=== PATIENT | male | born 1990 | race Caucasian/White ===

== ENCOUNTER 2017-05-16 13:29 | Emergency (ER) | payer MEDICAID ==
[2017-05-16 14:08] LABS: #Basophils 0.1 thou/uL (0.0-0.2); #Eosinphils 0.1 thou/uL (0.0-0.7); #Lymphocytes 2.5 thou/uL (1.20-3.40); #Monocytes 1.2 thou/uL (0.11-0.59); #Neutrophils 11.1 thou/uL (1.40-6.50); %Basophils 0.5 % (0.0-1.0); %Eosinophils 0.4 % (0.0-10.0); %Lymphocytes 16.9 % (21.0-51.0); %Monocytes 7.8 % (0.0-10.0); %Neutrophils 74.3 % (42.0-75.0); Hemoglobin 17.1 g/dL (14.0-18.0); Mean Corpuscular HGB CONC 33.9 g/dL (32.0-36.0); Mean Corpuscular Hemoglobin 31.4 pg (27.0-31.0); Mean Corpuscular Volume 92.7 fl (80.0-94.0); Platelet Count 343 thou/uL (130-400); RBC Distribution Width 11.5 % (11.5-14.5); Red Blood Cell (RBC) Count 5.45 mill/uL (4.70-6.10); White Blood Cell (WBC) Count 14.9 thou/uL (4.8-10.8)
--- NOTE | 2017-05-16 17:53 | RAD ---
RIGHT FOOT THREE VIEWS 05/16/17 No fracture or periosteal reaction was seen. No cause for foot pain was appreciated. All bones and j oints appear normal. IMPRESSION: No acute finding. POS: HOME
--- NOTE | 2017-05-16 19:22 | RAD ---
CHEST TWO VIEWS 05/16/17 The heart is normal in size and the lungs are clear. There is no current finding of pneumonia, pleur al effusion or pulmonary edema. The trachea is midline. The bony structures showed no acute changes. There is a little bony spurring in some of the lower thoracic vertebrae anteriorly. There may have been old trauma here in the past. IMPRESSION: No acute thoracic findings. POS: HOME
== END 2017-05-16 14:20 | disposition home or self-care (01) ==
LOC: BURERS 13:29
DX: S93.601A Unspecified sprain of right foot, initial encounter (principal); J20.9 Acute bronchitis, unspecified; F20.9 Schizophrenia, unspecified; F31.9 Bipolar disorder, unspecified; F41.9 Anxiety disorder, unspecified; F17.210 Nicotine dependence, cigarettes, uncomplicated; X58.XXXA Exposure to other specified factors, initial encounter
CPT/HCPCS: 36415; 71020; 85025